=== PATIENT | female | born 1965 | race Native Hawaiian/Other Pacific Islander ===

== ENCOUNTER 2018-06-19 08:12 | Outpatient (CLI) | payer BC ==
[~2018-06-19 08:12] MED LIST: ALPR0.2566 PO; DICL1GEL2 TOP; ESTR1TAB13 PO; FLUO20CA6 PO; HYDACET7.5 PO; MOBIC15 MG PO; PHENTERMINE37.5 MG PO; SIMV10TA PO
== END 2018-06-19 21:41 | disposition home or self-care (01) ==
LOC: MAMMO 08:12
DX: Z12.31 Encounter for screening mammogram for malignant neoplasm of breast (principal)

== ENCOUNTER 2019-02-09 09:09 | Emergency (ER) | payer BC ==
[~2019-02-09] VITALS: Ht 167.6 cm; Wt 106.1 kg
[2019-02-09 09:32] VITALS: BP 136/85; TEMP 98.4
== END 2019-02-09 10:16 | disposition home or self-care (01) ==
LOC: ED 09:09
DX: S40.012A Contusion of left shoulder, initial encounter (principal); W01.198A Fall on same level from slipping, tripping and stumbling with subsequent striking against other object, initial encounter; Y92.092 Bedroom in other non-institutional residence as the place of occurrence of the external cause
CPT/HCPCS: 99282

== ENCOUNTER 2019-08-07 10:10 | Outpatient (CLI) | payer BC | END 2019-08-07 21:18 | disposition home or self-care (01) | LOC: MAMMO 10:10 | DX: Z12.31 Encounter for screening mammogram for malignant neoplasm of breast (principal) ==

== ENCOUNTER 2020-08-19 09:01 | Outpatient (CLI) | payer BC | END 2020-08-19 19:32 | disposition home or self-care (01) | LOC: MAMMO 09:01 | PROVIDERS: ATTEND Family Medicine | DX: Z12.31 Encounter for screening mammogram for malignant neoplasm of breast (principal) ==

== ENCOUNTER 2020-09-16 08:59 | Outpatient (CLI) | payer BC | END 2020-09-16 19:11 | disposition home or self-care (01) | LOC: MAMMO 08:59 | PROVIDERS: ATTEND Pediatrics | DX: R92.8 Other abnormal and inconclusive findings on diagnostic imaging of breast (principal) ==

== ENCOUNTER 2021-09-21 08:35 | Outpatient (CLI) | payer BC | END 2021-09-21 19:56 | disposition home or self-care (01) | LOC: MAMMO 08:35 | PROVIDERS: ATTEND Family Medicine | DX: Z12.31 Encounter for screening mammogram for malignant neoplasm of breast (principal) ==

== ENCOUNTER 2022-07-27 10:04 | Outpatient (CLI) | payer BC | END 2022-07-27 19:29 | disposition home or self-care (01) | LOC: RAD 10:04 | PROVIDERS: ATTEND Family Medicine | DX: R00.2 Palpitations (principal); R53.83 Other fatigue | CPT/HCPCS: 93005 ==

== ENCOUNTER 2022-12-28 09:58 | Outpatient (CLI) | payer BC | END 2022-12-28 19:11 | disposition home or self-care (01) | LOC: RAD 09:58 | PROVIDERS: ATTEND Family Medicine | DX: Z12.31 Encounter for screening mammogram for malignant neoplasm of breast (principal); Z13.820 Encounter for screening for osteoporosis ==